=== PATIENT | female | born 1980 | race Caucasian/White ===

== ENCOUNTER 2021-05-08 09:58 | Outpatient (REF) | payer OTHER, SELFPAY ==
--- NOTE | ~2021-05-08 | US_ITS ---
EXAMINATION: US ABDOMEN COMPLETE CLINICAL INFORMATION: Right upper quadrant pain. Rule out cholecystitis. COMPARISON: None TECHNIQUE: Real-time imaging of the abdominal viscera. FINDINGS: PANCREAS: The visualized portion of the pancreas head and body are normal, portion of the pancreatic body and tail, not visualized are obscured by bowel gas. ABDOMINAL AORTA: The proximal, mid, and distal segments are normal in caliber. INFERIOR VENA CAVA: Visualized portions are normal. LIVER: Normal. The liver is normal in size. The liver contour is normal. Parenchymal echogenicity is normal. No focal hepatic lesion. There is no intrahepatic biliary duct dilatation seen. GALLBLADDER: The gallbladder is physiologically distended. Multiple mobile gallstones are present. No evidence of gallbladder wall thickening or pericholecystic fluid. COMMON BILE DUCT: Normal in caliber measuring 0.2 cm in diameter. RIGHT KIDNEY: Normal. No hydronephrosis. No renal calculi or focal parenchymal lesions. The kidney measures 11.8 cm in maximum dimension. LEFT KIDNEY: Normal. No hydronephrosis. No renal calculi or focal parenchymal lesions. The kidney measures 12.3 cm in maximum dimension. SPLEEN: There is a small splenial measuring 1.5 x 1.2 x 2.1 cm The spleen measures 9.5 cm in maximum dimension. FREE FLUID: None. US/US abdomen complete IMPRESSION: Cholelithiasis, There are multiple gallstones, there is no ultrasound evidence of acute cholecystitis. Small structure adjacent to the spleen likely splenules 1.5 cm.
== END 2021-05-08 09:59 | disposition home or self-care (01) ==
LOC: HO.HMGCX 09:58
PROVIDERS: PCP Internal Medicine; Visit Provider Internal Medicine
DX: R10.11 Right upper quadrant pain (principal)
CPT/HCPCS: 76700

== ENCOUNTER 2024-12-21 10:22 | Outpatient (AMB) | payer OTHER, SELFPAY ==
--- NOTE | 2024-12-21 10:28 | MHC.OFFVIS ---
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 Pt states worse with pregnancies. Left LE worse than Right LE. Pt states she gets tingling. Pt states she exercises regularly. 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 Complaints include pain over varicosities, swelling of lower extremities, cramping, fatigue, and heaviness of the lower extremities. It has been affecting there daily activities including walking. It is noted more so in left leg. She noted significant swelling after her 2nd child. Patient denies any previous venous surgery or injections. Patient denies any history of DVT/ PE. Patient denies any history of phlebitis. Trial of compression includes - [id number] They now present for vascular evaluation regarding their varicose veins. [facility] Medical History (Updated 12/21/24 @ 11:18 by Perez Pierre MD) delivery delivered Surgical History (Updated 12/21/24 @ 10:34 by CHACHO Tomas) H/O tubal ligation Review of Systems Const Reports as per HPI ENT Reports no additional complaints Card Denies chest pain, Denies chest pain at rest and Denies chest pain with activity Resp Denies chest congestion and Denies cough GI Reports no additional complaints Musc Details: pain over varicosities, aching of lower extremities, swelling, cramping, heaviness and tiredness, itching Denies abnormal gait Skin/Breast Reports pruritus and Denies wounds Neuro Reports no additional complaints and Denies abnormal gait Psych Denies no additional complaints Physical Exam Const General: cooperative, healthy appearing and comfortable Orientation/consciousness: oriented to person, oriented to place and oriented to time Neck Carotids: no bruits Chest Chest palpation & inspection: normal inspection of the chest and normal palpation of entire chest wall Resp Effort & Inspection: normal respiratory effort and able to speak in complete sentences Cardio Rate: regular rate Heart sounds: S1 normal heart sound present and S2 normal heart sound present Peripheral pulses: Peripheral pulses 2+ throughout GI Inspection: Yes normal to inspection Skin Other: +2 edema, large rope-like varicosities greater than 4 mm left thigh and calf CEAP Classification C4 - skin color changes Ep - Etiology Primary As - superficial veins P - reflux General skin exam: dry skin Neuro General: oriented to person, oriented to place and oriented to time Extrem Right lower extremity: full ROM, normal capillary refill and edema Left lower extremity: full ROM, normal capillary refill and edema Psych Mental Status: mental status grossly normal Assessment & Plan Assessment & Plan (1) Varicose veins of left lower extremity with inflammation: Code(s): I83.12 - Varicose veins of left lower extremity with inflammation Category: Medical Plan: In short, the patient has evidence of venous insufficiency. I have discussed the pathophysiology with the patient. In addition I have provided informational material regarding venous disease to the patient. We have discussed conservative measures including compression, elevation, and exercise. I have also provided a handout regarding appropriate use of compression stockings and where to purchase good compression stockings as well. I have taken the liberty of ordering venous insufficiency testing with the patient. They will follow up with me after testing. The patient had an opportunity to ask questions regarding the treatment plan. All questions were answered. Imaging studies, laboratory studies and physical exam results were discussed and reviewed in detail. No major barriers to understanding were identified. The patient expressed understanding and agreement with the above treatment plan. The patient is aware they should contact our office by phone for worsening of the current condition or the appearance of new symptoms. Thank you for allowing me to participate in the vascular care of this patient. If you have any questions or concerns regarding the treatment for the above condition please do not hesitate to contact me. The office telephone contact is [phone]. This note is constructed using voice recognition software. While every effort has been made to ensure accuracy, hospital staff pharmacist errors may have been included. Thank you for allowing me to participate in the care of your patient. Yours sincerely, Perez Pierre MD, FACS, R.P.V.I. Orders: Orders US venous duplex LE BI Today I83.12 - Varicose veins of left lower extremity with inflammation Coding Level of Care Code New Pt Level 4 (87416) Diagnoses Varicose veins of left lower extremity with inflammation I83.12
--- OUTSIDE RECORDS SUMMARY | 2024-12-21 11:03 | XMS_ITS | Clinical Summary ---
Author Organization [address] Address [address] [place] [id number] Phone Care Team Providers Care Criminalist Name Role Phone Alyssa Mallory MD Primary Care Provider [phone] Encounters Date Type Department Care Team Description 12/01/2024 Lab Requisition [facility] - Main Lab [address] [place] [address] [place] [address] Alyssa Mallory MD Encounter for screening for malignant neoplasm of cervix from Last 3 Months Social History Tobacco Use Types Packs/Day Years Used Date Smoking Tobacco: Never Assessed Comments Unknown Sex and Gender Information Value Date Recorded Sex Assigned at Not on file Legal Sex Female 9:10 AM EST Gender Identity Not on file Sexual Orientation Not on file Plan of Treatment Health Maintenance Due Date Last Done Comments Breast Cancer Screening 1982 DTaP,Tdap,and Td Vaccines (1 - Tdap) 2001 Hepatitis B Vaccines (1 of 3 - 19+ 3-dose series) 2001 COVID-19 Vaccine ( - 2023-2 5 season) 2024 Depression Screening 05/24/2024 HIV Screening 12/01/2024 Hepatitis C Screening 12/01/2024 Social Influencers of Health Screening 12/01/2024 Influenza Vaccine (#1) 2025 Cervical Cancer Screening: HPV 11/30/2029 11/30/2024 HIB Vaccines Aged Out No longer eligi ble based on patient's age to complete this topic HPV Vaccines Aged Out No longer eligi ble based on patient's age to complete this topic Hepatitis A Vaccines Aged Out No long er eligible based on patient's age to complete this topic IPV Vaccines Aged Out No longer eligi ble based on patient's age to complete this topic MMR Vaccines Aged Out No longer eligi ble based on patient's age to complete this topic Meningococcal ACWY Vaccine Aged Out N o longer eligible based on patient's age to complete this topic Meningococcal B Vaccine Aged Out No l onger eligible based on patient's age to complete this topic Pneumococcal Vaccine: Pediat rics (0 to 5 Years) and At-Risk Patients (6 to 49 Years) Aged Out No longer eligi ble based on patient's age to complete this topic RSV Immunization Patients Un yomi 20 months Aged Out No longer eligible b ased on patient's age to complete this topic Varicella Vaccines Aged Out No longer eligible based on patient's age to complete this topic Procedures Procedure Name Priority Date/Time Associated Diagnosis Comments PAP SMEAR Routine 11/30/2024 12:00 AM EDT Encounter for screening for malignant neoplasm of cervix HPV WITH REFLEX GENOTYPE Routine 11/30/2024 12:00 AM EDT Encounter for screening for malignant neoplasm of cervix from Last 3 Months Results * HPV with reflex genotype (11/30/2024 12:00 AM EDT) HPV Negative Negative LAB MICROBIOLOGY METHOD 12/01/2024 1:28 PM EDT [facility] Brushing/Spatula Cervix uteri structure / Unknown 11/30/2024 12/01/2024 6:33 AM EDT us Alyssa Mallory MD LAB MOLECULAR DIAGNOSTICS ORD ERABLES Final Result [facility] [address] [place] [address], * Pap smear (11/30/2024 12:00 AM EDT) Interpretation Negative for intraepithelial lesion or malignancy 12/08/2024 3:35 PM EDT [facility] General Categorization Negative 12/08/2024 3:35 PM EDT [facility] LMP 12/08/2024 3:35 PM EDT [facility] Comment:2 wks Specimen Adequacy Satisfactory for evaluation, endocervical/prado sformation zone component present 12/08/2024 3:35 PM EDT [facility] Pap Methodology Liquid Based Pap Test 12/08/2024 3:35 PM EDT [facility] Disclaimer The Pap test is a screening test which carries an inherent false negative rate. These test results should be correlated with the patient's clinical findings and history. This Pap test was processed using an automated screening system. Technical cytopathology services provided by [facility], at [address] [place] [address] (CLIA # [id number]/Yasmin Cox MD, Ug Designer.) 12/08/2024 3:35 PM EDT [facility] Console Pap Interpretation Reported 12/08/2024 3:35 PM EDT [facility] Brushing/Spatula Cervix uteri structure / Unknown 11/30/2024 12/01/2024 6:33 AM EDT Alyssa Mallory MD LAB CYTOLOGY ORDERABLES Final Result [facility] [address] [place] [address], from Last 3 Months Insurance [facility] [address] [place] [address] Care Teams Criminalist Relationship Specialty Start Date End Date Alyssa Mallory MD [address] [facility] [address] [place], [place] PCP - General Internal Medicine 04/28/17
== END 2024-12-21 10:52 | disposition home or self-care (01) ==
LOC: HO.HVS 10:22
PROVIDERS: PCP Internal Medicine; Visit Provider Surgery Vascular Surgery
DX: I83.12 Varicose veins of left lower extremity with inflammation (principal)
CPT/HCPCS: 99204

== ENCOUNTER → 2024-12-21 10:22 | Outpatient (BNVA) | payer SELFPAY | PROVIDERS: PCP Internal Medicine; Visit Provider Surgery Vascular Surgery | DX: I83.12 Varicose veins of left lower extremity with inflammation (principal) | CPT/HCPCS: 99202 ==

== ENCOUNTER 2025-01-19 08:30 | Outpatient (REF) | payer OTHER, SELFPAY ==
--- NOTE | ~2025-01-19 | US_ITS ---
EXAMINATION: US LOWER EXTREMITY VENOUS (REFLUX EXAM), BILATERAL CLINICAL INFORMATION: Varicose veins of the right lower extremity with inflammation COMPARISON: None. TECHNIQUE: Color flow triplex imaging and compression Doppler was performed to evaluate both the deep and the superficial systems bilaterally. To evaluate the superficial system, the examination was performed in the upright position. Color-flow Doppler ultrasound and compression ultrasound were utilized. In addition, maneuvers were utilized to demonstrate reflux. FINDINGS: 1. DEEP VENOUS ULTRASOUND OF THE RIGHT LOWER EXTREMITY: Common Femoral Vein: Compressible, normal respiratory variation and augmented flow. Femoral Vein: Compressible, normal color flow and augmentation. Popliteal Vein: Compressible, normal augmentation. Deep Reflux: There is no evidence of reflux in the deep system in either the common femoral vein, superficial femoral or the popliteal vein. 2. SUPERFICIAL ULTRASOUND WITH DOPPLER OF RIGHT LOWER EXTREMITY: GREAT SAPHENOUS VEIN: Saphenofemoral Junction: 0.6 cm; Reflux: 0 ms Proximal Thigh: 0.3 cm; Reflux: 0 ms Mid Thigh: 0.2 cm; Reflux: 0 ms Distal Thigh: 0.3 cm; Reflux: 0 ms At Knee: 0.3 cm; Reflux: 3200 ms Below Knee/Proximal Calf: 0.2 cm; Reflux: 0 ms Mid Calf: 0.2 cm; Reflux: 0 ms Ankle/Distal Calf: 0.3 cm; Reflux: 0 ms SMALL SAPHENOUS VEIN: Drainage: Popliteal vein Saphenopopliteal Junction: 0.3 cm; Reflux: 0 ms Mid calf: 0.2 cm; Reflux: 0 ms Distal: 0.2 cm; Reflux: 0 ms VEIN OF GIACOMINI: Size: NA cm Reflux: NA ms PERFORATORS: Location: Greater saphenous vein, mid calf Size: 0.2 cm Reflux: 0 ms Location: Greater saphenous vein, distal calf Size: 0.2 cm Reflux: 0 ms VARICOSITIES > 3mm: Location: None Imaged 3. DEEP VENOUS ULTRASOUND OF THE LEFT LOWER EXTREMITY: Common Femoral Vein: Compressible, normal respiratory variation and augmented flow. Femoral Vein: Compressible, normal color flow and augmentation. Popliteal Vein: Compressible, normal augmentation. Deep Reflux: There is no evidence of reflux in the deep system in either the common femoral vein, superficial femoral or the popliteal vein. 4. SUPERFICIAL ULTRASOUND WITH DOPPLER OF LEFT LOWER EXTREMITY: GREAT SAPHENOUS VEIN: Saphenofemoral Junction: 0.8 cm; Reflux: 0 ms Proximal Thigh: 0.4 cm; Reflux: 0 ms Mid Thigh: 0.5 cm; Reflux: 3100 ms Distal Thigh: 0.2 cm; Reflux: 0 ms At Knee: 0.2 cm; Reflux: 0 ms Below Knee/Proximl calf: 0.3 cm; Reflux: 1600 ms Mid Calf: 0.3 cm; Reflux: 0 ms Distal Calf/Ankle: 0.3 cm; Reflux: 2900 ms SMALL SAPHENOUS VEIN: Drainage: Thigh extension Saphenopopliteal Junction: 0.1 cm; Reflux: 0 ms Mid calf: 0.2 cm; Reflux: 0 ms Distal calf: 0.1 cm; Reflux: 0 ms VEIN OF GIACOMINI: Size: NA Reflux: NA PERFORATORS: Location: Greater saphenous vein, mid calf Size: 0.3 cm Reflux: 2800 ms VARICOSITIES > 3mm: Location: Greater saphenous vein, proximal thigh Size: 0.5 cm Reflux: 3200 ms Location: Greater saphenous vein, mid thigh Size: 0.5 cm Reflux: 3400 ms US/US venous insuf bilat IMPRESSION: Right: There is venous incompetence with reflux noted in the greater saphenous vein at the knee Left: There is venous incompetence with reflux in the greater saphenous vein at the mid thigh, below the knee, and at the ankle. There is also a refluxing restaurant host in the mid calf and refluxing varicosities in the thigh. Electronically signed by: Ryan Manley MD 01/19/2025 10:53 AM EDT
--- OUTSIDE RECORDS SUMMARY | 2025-01-19 09:30 | XMS_ITS | Encounter Summary ---
Author Organization [facility] Address [address] [place] [address] Care Team Providers Care Percussion Instructor Name Role Phone Alyssa Mallory MD Primary Care Provider [phone] Encounter Details Date Type Department Care Team (Late st Contact Info) Description 12/01/2024 Lab Requisition [facility] - Main Lab [address] [facility] [place] [address] Alyssa Mallory MD [address] [place] [address] [place] [address] Encounter for screening for malignant neoplasm of cervix Social History Tobacco Use Types Packs/Day Years Used Date Smoking Tobacco: Never Assessed Comments Unknown Sex and Gender Information Value Date Recorded Sex Assigned at Not on file Legal Sex Female 9:10 AM EST Gender Identity Not on file Sexual Orientation Not on file documented as of this encounter Plan of Treatment Not on file documented as of this encounter Procedures Procedure Name Priority Date/Time Associated Diagnosis Comments HPV WITH REFLEX GENOTYPE Routine 11/30/2024 12:00 AM EDT Encounter for screening for malignant neoplasm of cervix PAP SMEAR Routine 11/30/2024 12:00 AM EDT Encounter for screening for malignant neoplasm of cervix documented in this encounter Results * HPV with reflex genotype (11/30/2024 12:00 AM EDT) HPV Negative Negative LAB MICROBIOLOGY METHOD 12/01/2024 1:28 PM EDT [facility] Brushing/Spatula Cervix uteri structure / Unknown 11/30/2024 12/01/2024 6:33 AM EDT us Alyssa Mallory MD LAB MOLECULAR DIAGNOSTICS ORD ERABLES Final Result [facility] [address] [place] [address], [place] [phone] * Pap smear (11/30/2024 12:00 AM EDT) Interpretation Negative for intraepithelial lesion or malignancy 12/08/2024 3:35 PM EDT [facility] General Categorization Negative 12/08/2024 3:35 PM EDT [facility] LMP 12/08/2024 3:35 PM EDT [facility] Comment:2 wks Specimen Adequacy Satisfactory for evaluation, endocervical/prado sformation zone component present 12/08/2024 3:35 PM EDT [facility] Pap Methodology Liquid Based Pap Test 12/08/2024 3:35 PM EDT [facility] Disclaimer The Pap test is a screening test which carries an inherent false negative rate. These test results should be correlated with the patient's clinical findings and history. This Pap test was processed using an automated screening system. Technical cytopathology services provided by [facility], at [address] [place] [id number] (CLIA # [id number]/Yasmin Cox MD, Credit Checker.) 12/08/2024 3:35 PM EDT [facility] Console Pap Interpretation Reported 12/08/2024 3:35 PM EDT [facility] Brushing/Spatula Cervix uteri structure / Unknown 11/30/2024 12/01/2024 6:33 AM EDT us Alyssa Mallory MD LAB CYTOLOGY ORDERABLES Final Result [facility] [address] [place] [address], documented in this encounter Visit Diagnoses Diagnosis Encounter for screening for malignant neoplasm of cervix documented in this encounter Care Teams Percussion Instructor Relationship Specialty Start Date End Date Alyssa Mallory MD [address] [facility] [address] [place], [place] PCP - General Internal Medicine 04/28/17 documented as of this encounter
--- OUTSIDE RECORDS SUMMARY | 2025-01-19 09:30 | XMS_ITS | Clinical Summary ---
Author Organization [address] Address [address] [place] [phone] Phone Care Team Providers Care Service Sprinkler Helper Name Role Phone Alyssa Mallory MD Primary Care Provider [phone] Encounters Date Type Department Care Team Description 12/01/2024 Lab Requisition [facility] - Main Lab [address] [place] [address] [place] [address] Alyssa Mallory MD Encounter for [...] LAB MICROBIOLOGY METHOD 12/01/2024 1:28 PM EDT [facility] Brushing/Spatula Cervix uteri structure / Unknown 11/30/2024 12/01/2024 6:33 AM EDT us Alyssa Mallory MD LAB MOLECULAR DIAGNOSTICS ORD ERABLES Final Result [facility] [address] [place] [address], * Pap smear (11/30/2024 12:00 AM EDT) [...] screening system. Technical cytopathology services provided by [facility], at [address] [place] [address] (CLIA # [id number]/Yasmin Cox MD, Order Packer Or Packager.) 12/08/2024 3:35 PM EDT [facility] Console Pap Interpretation Reported 12/08/2024 3:35 PM EDT [facility] Brushing/Spatula Cervix uteri structure / Unknown 11/30/2024 12/01/2024 6:33 AM EDT Alyssa Mallory MD LAB CYTOLOGY ORDERABLES Final Result [facility] [address] [place] [address], from Last 3 Months Insurance [facility] [address] [place] [address] Care Teams Service Sprinkler Helper Relationship Specialty Start Date End Date Alyssa Mallory MD [address] [facility] [address] [place], [place] PCP - General Internal Medicine 04/28/17
== END 2025-01-19 08:31 | disposition home or self-care (01) ==
LOC: HO.US 08:30
PROVIDERS: PCP Internal Medicine; Visit Provider Surgery Vascular Surgery
DX: I83.12 Varicose veins of left lower extremity with inflammation (principal)
CPT/HCPCS: 93970

== ENCOUNTER → 2025-01-19 08:34 | Outpatient (BNV) | payer OTHER, SELFPAY | PROVIDERS: PCP Internal Medicine; Visit Provider Radiology Diagnostic Radiology | DX: I83.11 Varicose veins of right lower extremity with inflammation (principal) | CPT/HCPCS: 93970 ==

== ENCOUNTER 2025-02-27 09:58 | Outpatient (AMB) | payer OTHER, SELFPAY ==
--- NOTE | 2025-02-27 10:02 | A.OFFVIS_ITS ---
Vital Signs 02/27/25 10:02 Height 5 ft 6 in Intake Visit Reasons: follow up 01/19/25 Intake Note: follow up VV s/p 01/19/25. Pt states Left LE worse than the Right LE. Gets swelling and tingling, worse with exercise. Started w/ [employer] Required: No Accompanied by: Self / Same As Patient Allergies No Known Allergies (No Known Allergies*) Allergy (Unverified 02/27/25 10:06) [facility] HPI follow up [facility] 01/19/25: Details: The patient is a 44-year-old female presenting with varicose veins in the left leg. The patient reports that her left leg has been bothering her, although she feels better now. She engages in walking for one hour every day, which seems to have improved her symptoms. An ultrasound was performed, and the results were reviewed by the clinician. The proposed treatment involves injecting a sealant into the affected vein, which is a procedure performed in the office. She has a large cluster of varicosities in the left calf which have been a source of pain and discomfort for her. She now presents for follow-up with venous insufficiency testing. [facility] Medical History delivery delivered Surgical History H/O tubal ligation Review of Systems Const Reports as per HPI ENT Reports no additional complaints Card Denies chest pain, Denies chest pain at rest and Denies chest pain with activity Resp Denies chest congestion and Denies cough GI Reports no additional complaints Musc Details: pain over varicosities, aching of lower extremities, swelling, cramping, heaviness and tiredness, itching Denies abnormal gait Skin/Breast Reports pruritus and Denies wounds Neuro Reports no additional complaints and Denies abnormal gait Psych Denies no additional complaints Physical Exam Const General: cooperative, healthy appearing and comfortable Orientation/consciousness: oriented to person, oriented to place and oriented to time Neck Carotids: no bruits Chest Chest palpation & inspection: normal inspection of the chest and normal palpation of entire chest wall Resp Effort & Inspection: normal respiratory effort and able to speak in complete sentences Cardio Rate: regular rate Heart sounds: S1 normal heart sound present and S2 normal heart sound present Peripheral pulses: Peripheral pulses 2+ throughout GI Inspection: Yes normal to inspection Skin Other: +2 edema, large rope-like varicosities greater than 4 mm left calf CEAP Classification C4 - skin color changes Ep - Etiology Primary As - superficial veins P - reflux General skin exam: dry skin Neuro General: oriented to person, oriented to place and oriented to time Extrem Right lower extremity: full ROM, normal capillary refill and edema Left lower extremity: full ROM, normal capillary refill and edema Psych Mental Status: mental status grossly normal Results Reviewed Results Reviewed: Brief summary of venous insufficiency testing is as follows: right great saphenous vein: negative right small saphenous vein: negative right accessory vein: none present left great saphenous vein: Positive left small saphenous vein: negative left accessory vein: none present Please note there is no evidence of any venous aneurysms or significant to rtuosity Assessment & Plan Assessment & Plan (1) Varicose veins of left lower extremity with inflammation: Code(s): I83.12 - Varicose veins of left lower extremity with inflammation Category: Medical Plan: This patient has varicose veins with inflammation. They continue to be a source of discomfort for the patient. The patient has tried conservative treatment with compression, leg elevation and exercise program for over 3 months time. They have been compliant with all treatment. This has provided minimal relief for the patient. I do not anticipate this course of treatment will alter the underlying etiology. The patient has been scheduled for lower extremity venous treatment inclusive of --- left great saphenous vein Cyanoacralate ablation. Risks, benefits, and complications of this procedure has been discussed in detail with the patient including but not limited to bleeding, infection, and the development of a DVT. The patient has demonstrated a clear understanding and has consented. We will schedule the patient as soon as possible. Thank you for allowing us to participate in this patient's care. If there are any questions or concerns please do not hesitate to contact us. Plan Patient was informed and verbally consented to the use of an ambient scribe for clinic note documentation during this visit. Patient Instructions: - Follow the pre-procedure instructions provided by the office. - Plan for the procedure to be done on a Wednesday, allowing for recovery over the weekend. - Resume normal activities by Wednesday following the procedure. Coding Level of Care Code Est Pt Level 4 (46769) Diagnoses Varicose veins of left lower extremity with inflammation I83.12
--- OUTSIDE RECORDS SUMMARY | 2025-02-27 11:41 | XMS_ITS | Encounter Summary ---
Author Organization [facility] Address [address] [place] [address] Care Team Providers Care Parts Room Assistant Name Role Phone Alyssa Mallory MD Primary Care Provider [phone] Encounter Details Date Type Department Care Team (Late st Contact Info) Description 12/01/2024 Lab Requisition [facility] - Main Lab [address] [facility] [place] [address] Alyssa Mallory MD [address] [place] [address] [place] [address] Encounter for screening for malignant neoplasm of [...] LAB MICROBIOLOGY METHOD 12/01/2024 1:28 PM EDT [facility] Brushing/Spatula Cervix uteri structure / Unknown 11/30/2024 12/01/2024 6:33 AM EDT us Alyssa Mallory MD LAB MOLECULAR DIAGNOSTICS ORD ERABLES Final Result [facility] [address] [place] [address], [place] [phone] * Pap smear (11/30/2024 12:00 AM EDT) Interpretation Negative for intraepithelial lesion or malignancy 12/08/2024 3:35 PM EDT [facility] General Categorization Negative 12/08/2024 3:35 PM EDT [facility] LMP 12/08/2024 3:35 PM EDT [facility] Comment:2 wks Specimen Adequacy Satisfactory for evaluation, endocervical/prado sformation zone component present 12/08/2024 3:35 PM EDT [facility] Pap Methodology Liquid Based Pap Test 12/08/2024 3:35 PM EDT [facility] Disclaimer The Pap test is a screening test which carries an inherent false negative rate. These test results should be correlated with the patient's clinical findings and history. This Pap test was processed using an automated screening system. Technical cytopathology services provided by [facility], at [address] [place] [address] (CLIA # [id number]/Yasmin Cox MD, Screen Examiner.) 12/08/2024 3:35 PM EDT [facility] Console Pap Interpretation Reported 12/08/2024 3:35 PM EDT [facility] Brushing/Spatula Cervix uteri structure / Unknown 11/30/2024 12/01/2024 6:33 AM EDT us Alyssa Mallory MD LAB CYTOLOGY ORDERABLES Final Result [facility] [address] [place] [address], documented in this encounter Visit Diagnoses Diagnosis Encounter for screening for malignant neoplasm of cervix documented in this encounter Care Teams Parts Room Assistant Relationship Specialty Start Date End Date Alyssa Mallory MD [address] [facility] [address] [place], [place] PCP - General Internal Medicine 04/28/17 documented as of this encounter
--- OUTSIDE RECORDS SUMMARY | 2025-02-27 11:41 | XMS_ITS | Clinical Summary ---
Author Organization [address] Address [address] [place] [address] Phone Care Team Providers Care Lobby Attendant Name Role Phone Alyssa Mallory MD Primary Care Provider [phone] Encounters Date Type Department Care Team Description 12/01/2024 Lab Requisition [facility] - Main Lab [address] [place] [address] [place] [address] Alyssa Mallory MD Encounter for [...] of 3 - 19+ 3-dose series) 2001 HPV Vaccines (1 - 3-dose SCD M series) 2009 Depression Screening 05/24/2024 HIV Screening 12/01/2024 Hepatitis C Screening 12/01/2024 Social Influencers of Health Screening 12/01/2024 COVID-19 Vaccine ( - 2023-2 5 season) 2025 Influenza Vaccine (#1) 2025 Cervical Cancer Screening: HPV 11/30/2029 11/30/2024 RSV Immunization Adult Patie nts (1 - 1-dose 75+ series) 2057 HIB Vaccines Aged Out No longer eligi [...] LAB MICROBIOLOGY METHOD 12/01/2024 1:28 PM EDT [facility] Brushing/Spatula Cervix uteri structure / Unknown 11/30/2024 12/01/2024 6:33 AM EDT us Alyssa Mallory MD LAB MOLECULAR DIAGNOSTICS ORD ERABLES Final Result [facility] [address] [place] [address], * Pap smear (11/30/2024 12:00 AM EDT) Interpretation Negative for intraepithelial lesion or malignancy 12/08/2024 3:35 PM EDT [facility] General Categorization Negative 12/08/2024 3:35 PM EDT [facility] LMP 12/08/2024 3:35 PM EDT [facility] Comment:2 wks Specimen Adequacy Satisfactory for evaluation, endocervical/prado sformation zone component present 12/08/2024 3:35 PM EDT [facility] Pap Methodology Liquid Based Pap Test 12/08/2024 3:35 PM EDT [facility] Disclaimer The Pap test is a screening test which carries an inherent false negative rate. These test results should be correlated with the patient's clinical findings and history. This Pap test was processed using an automated screening system. Technical cytopathology services provided by [facility], at [address] [place] [id number] (CLIA # [id number]/Yasmin Cox MD, Air Tool Operator.) 12/08/2024 3:35 PM EDT [facility] Console Pap Interpretation Reported 12/08/2024 3:35 PM EDT [facility] Brushing/Spatula Cervix uteri structure / Unknown 11/30/2024 12/01/2024 6:33 AM EDT Alyssa Mallory MD LAB CYTOLOGY ORDERABLES Final Result [facility] [address] [place] [address], from Last [address] [facility] [address] [place] [address] Care Teams Lobby Attendant Relationship Specialty Start Date End Date Alyssa Mallory MD [address] [facility] [address] [place], [place] PCP - General Internal Medicine 04/28/17
== END 2025-02-27 10:27 | disposition home or self-care (01) ==
LOC: HO.HVS 09:59
PROVIDERS: PCP Internal Medicine; Visit Provider Surgery Vascular Surgery
DX: I83.12 Varicose veins of left lower extremity with inflammation (principal)
CPT/HCPCS: 99214